=== PATIENT | female | born 1995 ===

== ENCOUNTER 2018-12-28 08:24 | Emergency (ER) | payer OTHER ==
[~2018-12-28] VITALS: Ht 165.1 cm; Wt 86.2 kg
== END 2018-12-28 13:26 | disposition home or self-care (01) ==
LOC: ER 08:24
DX: R10.2 Pelvic and perineal pain (principal)

== ENCOUNTER 2020-11-08 09:21 | Emergency (ER) | payer OTHER ==
[~2020-11-08] VITALS: Ht 165.1 cm; Wt 63.5 kg
[2020-11-08] MEDS ORDERED: SALINE NASAL SP88 ML NASAL (14:20)
[2020-11-08] MEDS ORDERED: AMOX-CLAV 875-1 EACH PO (14:20)
[2020-11-08] MEDS ORDERED: PEPCID AC20 MG PO (14:20)
[2020-11-08] MEDS ORDERED: INTESTINEX680 M1 PO (14:20)
[2020-11-08] MEDS ORDERED: KETO10TA2 PO (14:20)
[2020-11-08] MEDS ORDERED: MUCINEX DM ER1 EAC1 PO (14:20)
[2020-11-08] MEDS ORDERED: FLONASE ALLERG9.9 ML NASAL (14:20)
== END 2020-11-08 14:31 | disposition home or self-care (01) ==
LOC: ER 09:21
DX: J32.0 Chronic maxillary sinusitis (principal); J03.90 Acute tonsillitis, unspecified; E86.0 Dehydration

== ENCOUNTER 2021-08-03 08:59 | Emergency (ER) | payer OTHER ==
[~2021-08-03] VITALS: Ht 165.1 cm; Wt 81.6 kg
[~2021-08-03 08:59] MED LIST: AMOX-CLAV 875-1 EACH PO; FLONASE ALLERG9.9 ML NASAL; INTESTINEX680 M1 PO; KETO10TA2 PO; MUCINEX DM ER1 EAC1 PO; PEPCID AC20 MG PO; SALINE NASAL SP88 ML NASAL
[2021-08-03] MEDS ORDERED: PYRIDIUM DS200 MG PO (16:22)
[2021-08-03] MEDS ORDERED: BACTRIM DS TAB1 EACH PO (16:22)
== END 2021-08-03 16:39 ==
LOC: ER 08:59
DX: N30.90 Cystitis, unspecified without hematuria (principal)